=== PATIENT | female | born 1960 | race Caucasian/White ===

== ENCOUNTER 2016-06-10 05:35 | Observation (INO) | payer BC ==
--- NOTE | 2016-06-06 23:23 | PREOPHP ---
DATE OF ADMISSION: 06/10/2016 HISTORY OF PRESENT ILLNESS: This is a 55-year-old female, 5, para 4. This patient was refe rred to me in March of this year due to a mass that was prolapsing outside her vagina and giving her difficulties with urination. She has been using a pessary office off and on, still loses urine with Valsalva maneuver. She does not want to wear a pessary anymore due to infections. She complai ns of having to push her vagina inside to have a BM or to urinate. She needs to wear a pad on a poppy ly basis. This patient was found to have a prolapse of the uterovaginal mares, grade IV, and she is being admitted for a hysterectomy and repair of the vaginal mares, vaginal reconstruction. PAST SURGICAL HISTORY: She had a history of herniorrhaphy in 2005 two times. Tubal ligation in 9. ALLERGIES: SHE HAS NO ALLERGIES. MEDICATIONS: She has been on Premarin vaginal cream. She is on no other medication. FAMILY HISTORY: Hypertension and diabetes. REVIEW OF SYSTEMS: Noncontributory for any heart disease. No lung disease, no GI disease, no diabe daniel, endocrine disease. No neurological or orthopedic disease. SOCIAL HISTORY: She does not drink or smoke. No history of drugs. PHYSICAL EXAMINATION: VITAL SIGNS: Stable with a blood pressure of 120/90, pulse is 80, respirations 16. She weighs 187 pounds. She is 5 feet 4 inches. HEAD AND NECK: Normal. BREASTS: Soft, nontender. No masses. HEART: Normal sinus rhythm. LUNGS: Clear. ABDOMEN: Soft, nontender. No masses. GENITALIA: With a cystourethrocele, grade III to IV, with a large rectocele as well. Cervix with c ervicitis, prolapse, grade III to IV. Uterus small size and mobile. Adnexa are nonpalpable. EXTREMITIES: Normal. DIAGNOSIS: Complete uterovaginal prolapse. PLAN: She is undergoing a vaginal total hysterectomy, anterior and posterior colporrhaphy with a sl ing and a graft. She has been advised of the possible risks and possible complications of the proce dure with her alternatives and options. Written information was provided. She had no more question s and agreed to go ahead with the procedure with full understanding. She had an ultrasound that was normal, she had a mammogram that was normal, and a normal Pap smear. She was also advised of the p ossible risks and possible complications of the sling and she has agreed to go ahead with the proced ure. She was given the option of not using a sling and the possible benefits and complications and possible outcome of either procedure, and she agreed to go ahead with the sling. Dictated By: LYUBOV LONG/ROSI Conf#: [id number] DID#: [id number]
[2016-06-09 11:02] VITALS: BMI 33.7
[~2016-06-10] VITALS: Ht 160 cm; Wt 87.5 kg
[2016-06-10] VITALS (19 sets, daily range): BP systolic 106–124; BP diastolic 62–78; PULSE 60–78; RESP 14–20; Ht 160 cm; Wt 87.5 kg
[2016-06-10] MEDS ORDERED: CEFAZOLIN 2 GM/50 ML (PMX) 50 ML IVPB ONE (06:00)
[2016-06-10] MEDS ORDERED: DEXTROSE 5%-LR 1,000 ML IV SCH (06:00)
[2016-06-10] MEDS ORDERED: LIDOCAINE 1%/EPI 30 ML INJ ONE (07:01)
[2016-06-10] MEDS ORDERED: THROMBIN 5000 UNIT VIAL ONE (07:01)
[2016-06-10] MEDS ORDERED: BUPIVACAINE 0.25%/EPI (SDV) 30 ML INJ ONE ×2 (07:01→08:26)
[2016-06-10] MEDS ORDERED: FENTAnyl 50 MCG/ML VIAL ONE ×2 (07:43→08:16)
[2016-06-10] MEDS ORDERED: IBUP400T22 PO (07:44)
[2016-06-10] MEDS ORDERED: MIDAZOLAM 1 MG/ML 2 ML INJ ONE (07:47)
[2016-06-10] MEDS ORDERED: PROPOFOL 100 ML ONE (07:49)
[2016-06-10] MEDS ORDERED: LIDOCAINE 2% (SDV) 5 ML INJ ONE (08:16)
[2016-06-10] MEDS ORDERED: ROCURONIUM 50 MG INJ ONE (08:16)
[2016-06-10] MEDS ORDERED: DEXAMETHASONE 4 MG/ML 1 ML INJ ONE (09:23)
[2016-06-10] MEDS ORDERED: ONDANSETRON 4 MG INJ ONE (09:24)
[2016-06-10] MEDS ORDERED: METHYLENE BLUE 1% 10 ML INJ ONE (09:42)
[2016-06-10] MEDS ORDERED: ISOSULFAN BLUE 1% 5 ML INJ SC ONE (09:42)
[2016-06-10] MEDS ORDERED: FUROSEMIDE 20 MG INJ ONE (09:44)
--- NOTE | 2016-06-10 11:08 | HPN ---
Date/Time of Note Date/Time of Note DATE: 06/10/16 TIME: 11:08 Interval H&P Admission Note Pt. seen H&P reviewed: No system changes LYUBOV ARRINGTON MD June 10, 2016 11:08
--- NOTE | 2016-06-10 11:15 | OPR ---
Date/Time of Note Date/Time of Note DATE: 06/10/16 TIME: 11:08 Operative Report Free Text/Dictation VAGINAL TOTAL HYSTERECTOMY ANTERIOR AND POSTERIOR REPAIR XENFORM GRAFT OBTRYX SLING CYSTOSCOPY Procedure Date: June 10, 2016 Preoperative Diagnosis COMPLETE UTEROVAGINAL PROLAPSE MIXED INCONTINENCE CONSTIPATION Postoperative Diagnosis SAME Surgeon: LYUBOV ARRINGTON MD Boxing Instructor: ELIZABETH MATHIAS M.D. Anesthesia: general Anesthesiologist: RADHA HARGROVE Estimated Blood Loss: 150 - 200 ml's Complications: None Pt Condition Post Procedure: stable Disposition: PACU LYUBOV ARRINGTON MD June 10, 2016 11:15
[2016-06-10] MEDS ORDERED: NALOXONE (0.4 MG/ML) INJ IV PRN (11:30)
[2016-06-10] MEDS ORDERED: LABETALOL HCL 20MG INJ IV PRN (11:30)
[2016-06-10] MEDS ORDERED: ONDANSETRON 4 MG INJ IV PRN ×2 (11:30)
[2016-06-10] MEDS ORDERED: HYDROmorphONE 1 MG/ML SYG IV PRN (11:30)
[2016-06-10] MEDS ORDERED: HYDROCODONE/APAP (5/325) TAB PO PRN ×2 (11:30)
[2016-06-10] MEDS ORDERED: FENTAnyl 50 MCG/ML VIAL IV PRN ×3 (11:30)
[2016-06-10] MEDS ORDERED: DIPHENHYDRAMINE 50 MG INJ IV PRN (11:30)
[2016-06-10] MEDS ORDERED: METOCLOPRAMIDE 10 MG INJ IV PRN (11:30)
[2016-06-10] MEDS ORDERED: EPHEDrine SULFATE 50 MG/5 ML SYG IV PRN (11:30)
[2016-06-10] MEDS ORDERED: hydrALAzine 20 MG INJ IV PRN (11:30)
[2016-06-10] MEDS ORDERED: ZOLPIDEM 5 MG TAB PO PRN (11:30)
[2016-06-10] MEDS ORDERED: DIPHENHYDRAMINE 50 MG CAP PO PRN (11:30)
[2016-06-10] MEDS ORDERED: MEPERIDINE 25 MG INJ IV PRN (11:30)
[2016-06-10] MEDS ORDERED: HYDROmorphONE (0.2 MG/ML) 10ML SYG IV PRN ×2 (11:30)
[2016-06-10] MEDS ORDERED: KETOROLAC 30 MG INJ ONE (11:31)
[2016-06-10] MEDS ORDERED: KETOROLAC 30 MG INJ IV STA (11:34)
[2016-06-10] MEDS: HYDROmorphONE (0.2 MG/ML) 10ML SYG IV PRN ×5 (11:52→12:47)
--- NOTE | 2016-06-10 12:52 | OPR ---
DATE OF OPERATION: 06/10/2016 PREOPERATIVE DIAGNOSIS: Complete uterovaginal prolapse, mixed incontinence, constipation. POSTOPERATIVE DIAGNOSIS: Complete uterovaginal prolapse, mixed incontinence, constipation. PROCEDURE PERFORMED: Vaginal total hysterectomy, anterior and posterior repair, Xenform graft, Obtr yx sling and cystoscopy SURGEON: Lyubov Wall MD ROUGE PRESSER: Ramesh Brown MD ANESTHESIOLOGIST: Dr. Blankenship. ANESTHESIA: Spinal and general anesthesia. DESCRIPTION OF PROCEDURE: The patient was given spinal and general anesthesia, placed in the supine position and lithotomy position. The perineal and vaginal area were prepped and draped. The vagin al speculum was applied and the cervix was held with a Rio clamp and injection of Xylocaine and ep inephrine was given around the cervicovaginal junction. A circular incision was made around the cer vicovaginal junction, and the cardinal ligaments were clamped and cut and tied with #1 Vicryl and he ld. The uterine vessels were clamped with the LigaSure instrument and burned to 3 green levels and incision was made. The uterus was inverted. The adnexal pedicles were grasped with Marvin clamps a nd the uterus was removed. The adnexal pedicles were sutured with [id number] sutures with #1 V icryl and these sutures were held. Hemostasis was good. The ovaries were very high up and palpable . Palpation only to assess them revealed that both ovaries were normal. The cavity was closed with a pursestring suture with #0 Vicryl. The adnexal pedicles and the uterosacral pedicles were tied t o each lateral side and both stitches, both adnexa and cardinal ligament stumps were brought out to the vaginal mucosa anteriorly and posteriorly. The vagina was closed with a 2-0 Vicryl suture and 0 Vicryl suture vertically with no complications. At this time, the Carranza catheter was placed in and midline incision was made on the cystocele vertic ally with the help of Xylocaine and epinephrine that was injected to separate the cystocele from the anterior vaginal mucosa. A pursestring suture was made around the bladder and the bladder was push ed up. The dissection was carried laterally to the internal obturator muscle on both sides. The in cision of the skin area where the obturator needle was going to be placed in 2 cm below the abductor longus tendon parallel to the clitoris, the obturator needle was passed through the obturator canal and perforating the membrane and retrieving the needle paraurethrally. This was done in both sides and the sling was attached to the needles and the needles were retrieved back, passing the tail of the sling through the obturator canal. This maneuver was done without any effort. A piece of Xenfo rm was placed at the level of the mid urethral area to protect the bladder from the pressure of the sling. The sling was attached to this area, but it was left pretty much . The other side of t he sling was covered with the other piece of Xenform and Surgiflo was placed in both corners. The p rocedure was finished by closing the vagina vertically with interrupted sutures with 2-0 Vicryl. At this moment, the sling at the level of the skin area was trimmed to the level of the skin and Trilla pineda was applied. Carranza catheter was removed and the cystoscopy was done. We injected methylene blue. We saw lightly the methylene blue in both ureters coming out and the bladder was also with intactness of the wall. The Carranza was reapplied. A transverse incision was made at the perineum and again the posterior v aginal mucosa was incised vertically in the midline with the help of Xylocaine and epinephrine separ ating the rectocele from the posterior vaginal mucosa. The rectocele was reduced by placing 2-0 Blas ryl sutures and the vagina was trimmed and closed with interrupted sutures with 2-0 Vicryl. The per ineal area was closed using #1 Vicryl suture to levator ani to lift the perineum. The rest of the p erineum was closed with interrupted sutures with 2-0 Vicryl and 3-0 Vicryl. The patient tolerated t he procedure well and left the OR awake and stable. Sponge counts and instrument counts were correc t. Intravenous antibiotics were given for prophylaxis. Blood loss was about 200 mL, and the urine was clear at the end of the procedure. Dictated By: LYUBOV LONG/ROSI Conf#: [id number] DID#: [id number]
[2016-06-10] MEDS: KETOROLAC 30 MG INJ IV SCH ×2 (13:07→18:22)
[2016-06-10] MEDS: CEFAZOLIN 1 GM/50 ML (PMX) 50 ML IVPB SCH ×2 (13:10→22:28)
[2016-06-10] MEDS: LACTATED RINGER'S 1,000 ML IV SCH ×2 (13:20→18:23)
[2016-06-10] MEDS: METOCLOPRAMIDE 10 MG TAB PO SCH ×2 (13:26→18:22)
[2016-06-10] MEDS ORDERED: IOHEXOL 300MG/ML 150 ML BTL ONE (17:00)
[2016-06-10] MEDS ORDERED: SOD CHLORIDE 0.9% 100 ML ONE (17:00)
--- NOTE | 2016-06-10 18:49 | RADRPT ---
PROCEDURE: CT Urogram. CLINICAL INDICATION: Assess ureteral flow. TECHNIQUE: CT urogram witht contrast was performed. The patient was examined following the uncomp licated intravenous administration of 100 cc of Omnipaque-300 with additional delayed images. Coron al reformatted images were obtained from the axial source images. Multiple overhead radiographs were obtained in the renal excretion phase of imaging. The total exam CTDI equals 2147.75 mGy and the to addi exam DLP equals 20.09 mGy-cm. One or more of the following dose reduction techniques were used: - Automated exposure control. - Adjustment of the mA and/or kV according to patient size. - Use of iterative reconstruction technique. COMPARISON: No prior studies are available for comparison. FINDINGS: CT urogram: The kidneys are symmetric in size, position, and morphology. No renal calculi are identified. There is no evidence for obstructive uropathy. The ureters are symmetrically normal. No ureteral calcul us is identified. The bladder is decompressed by a Carranza catheter. CT abdomen: The lung bases are remarkable for mild dependent basilar atelectasis. The heart size is normal, wit hout pericardial thickening or effusion. The liver is normal in size and demonstrates decreased den sity without focal mass or intrahepatic biliary dilatation. The spleen is normal in size and homogen eous in density. The stomach is partially collapsed, but is grossly unremarkable. The pancreas as visualized is normal. The gallbladder and biliary tree are unremarkable and there is no evidence fo r biliary dilatation. The adrenal glands are symmetric and normal. The aorta is of normal caliber. Aortic vascular calcifications are present. There is no retroperitoneal lymphadenopathy. The por ta hepatis region is clear. The bowel and mesentery, as visualized, are equally unremarkable. CT pelvis: There are recent surgical changes in the pelvis with extraperitoneal air identified, possibly from r ecent hysterectomy. The uterus is absent. The small bowel loops situated within the pelvis are unr emarkable. The pelvic sidewalls and inguinal regions are clear. The sigmoid colon and rectum are all unremarkable. Minimal diverticulosis is present, without evidence for diverticulitis. The rect um is collapsed at this time. No pelvic mass or adenopathy is seen. The surrounding osseous struc tures are remarkable for mild degenerative spondylosis of the spine. No osteolytic or osteoblastic lesion is detected. A fat containing right inguinal hernia is present. IMPRESSION: 1. Symmetric nephrograms and ureteral excretion is noted with the ureters visualized throughout the ir entire course entering the bladder. No evidence for obstructive uropathy. 2. A Carranza catheter decompresses the bladder. 3. Recent surgical changes in the pelvis. 4. Status post hysterectomy. 5. Sigmoid diverticulosis without CT evidence of diverticulitis. 6. Hepatic steatosis. RPTAT: HH .Adelso Herzog MD, MD Date Time Electronically viewed and signed by .Adelso Herzog MD, MD on 06/10/2016 18:48 .d/
[2016-06-11 00:13] VITALS: BP 104/63; RESP 18
[2016-06-11] MEDS: LACTATED RINGER'S 1,000 ML IV SCH ×3 (00:19→18:43)
[2016-06-11] MEDS: KETOROLAC 30 MG INJ IV SCH ×5 (00:19→22:39)
[2016-06-11] MEDS: METOCLOPRAMIDE 10 MG TAB PO SCH ×5 (00:19→23:15)
[2016-06-11] MEDS: CEFAZOLIN 1 GM/50 ML (PMX) 50 ML IVPB SCH (05:25)
[2016-06-11 06:19] VITALS: BP 118/72; PULSE 74; RESP 18
[2016-06-11 07:45] VITALS: BP 119/66; RESP 20
--- NOTE | 2016-06-11 11:17 | PD.PPDC ---
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
--- NOTE | 2016-06-11 11:17 | PN ---
Date/Time of Note Date/Time of Note DATE: 06/11/16 TIME: 11:12 Assessment/Plan Lines/Catheters IV Catheter Type (from Nrsg): Peripheral IV Cueto in Place (from Nrsg): Yes Subjective 24 Hr Interval Summary IN PAIN, REQUIRES IV PAIN MEDS. AFEBRILE. STABLE. VAGINAL DRESSING REMOVED CT SCAN WAS GOOD, WE WILL REMOVE CUETO AND START BLADDER TRAINING. PROBABLY WILL GO HOME TOMORROW IF PAIN IS TOLERATED WITH PO MEDS. TODAY.. Constitutional: BM, ambulates, flatus, improved, no complaints, urine output Feeding: advancing diet Pain Control: well controlled Detailed Summary Eyes: no complaints ENT: no complaints Respiratory: no complaints Cardiovascular: no complaints Gastrointestinal: no complaints Genitourinary: no complaints Musculoskeletal: no complaints Skin: no complaints Neurologic: no complaints Endocrine: no complaints Lymphatic: no complaints Psychological: nl mood/affect, no complaints Immunologic: no complaints Exam/Review of Systems Vital Signs Vitals Vital Signs Date Time Temp Pulse Resp B/P Pulse Ox O2 Delivery O2 Flow Rate FiO2 06/11/16 07:45 98.1 76 20 119/66 99 06/11/16 06:19 Nasal Cannula 06/10/16 12:01 2.0 Intake and Output 06/10/16 06/10/16 06/11/16 15:00 23:00 07:00 Intake Total 2240 ml 500 ml 1550 ml Output Total 1425 ml 150 ml 950 ml Balance 815 ml 350 ml 600 ml Exam Free Text/Dictation IN PAIN., PASSING SOME GASES REQUIRES IV PAIN MEDS Constitutional: alert, oriented, well developed Psych: nl mood/affect, no complaints Head: atraumatic, normocephalic Eyes: EOMI, nl conjunctiva, nl lids, nl sclera ENMT: mucosa pink and moist, nl external ears & nose, nl lips & teeth, nl nasal mucosa & septum Neck: non-tender, supple Respiratory: clear to auscultation, normal air movement Cardiovascular: nl pulses, regular rate and rhythm Gastrointestinal: nl liver, spleen, non-tender, soft Musculoskeletal: nl extremities to inspection, nl gait and stance Extremities: normal pulses Neurological: WARRANT SERVER II-XII intact, nl mental status, nl speech, nl strength Skin: nl turgor, rash or lesions Lymph: nl lymph nodes Results Result Diagram: 06/11/16 0725 LYUBOV ARRINGTON MD June 11, 2016 11:17
--- NOTE | 2016-06-11 11:20 | QN ---
Documentation Comment PATIENT WILL TRY PO MEDS TODAY FOR POSSIBLE DC TOMORROW STILL WITH SEVERE PAIN PASSING SOME GASES, TRAINING HER BLADDER. NOT AMBULATORY YET, ENCOURAGED AMBULATION. LYUBOV ARRINGTON MD June 11, 2016 11:20
[2016-06-11 19:54] VITALS: BP 111/56; RESP 20
[2016-06-12] MEDS: LACTATED RINGER'S 1,000 ML IV SCH ×2 (03:18→11:18)
[2016-06-12] MEDS: KETOROLAC 30 MG INJ IV SCH ×2 (05:04→12:27)
[2016-06-12] MEDS: METOCLOPRAMIDE 10 MG TAB PO SCH ×2 (05:05→12:28)
[2016-06-12 07:00] VITALS: BP 112/67; RESP 20
== END 2016-06-12 13:45 | disposition home or self-care (01) ==
LOC: SDS 05:35 → EDSTATUS 07:30 → MS1 11:18 → SDS 11:18 → MS1 14:06 → INTOOBSV 06-11 12:55 → OBSVTOIN 06-11 12:55
PROVIDERS: ADMIT Obstetrics & Gynecology; ATTEND Obstetrics & Gynecology
DX: N81.3 Complete uterovaginal prolapse (principal); K59.00 Constipation, unspecified; N72 Inflammatory disease of cervix uteri; R32 Unspecified urinary incontinence; E66.9 Obesity, unspecified; Z68.34 Body mass index [BMI] 34.0-34.9, adult
CPT/HCPCS: 57288; 58260; 74177; 84520; 86850; 86900; 86901; 86920; 87086; 88305; C1771; C1781; J0690; J1100; J1170; J1885; J1940; J2175; J2250; J2405; J3010; J7120; J7121; Q9967; Z7500; Z7512; Z7610; G0378; Q9968